=== PATIENT | male | born 1930 | race Caucasian/White ===

== ENCOUNTER 2018-10-02 20:19 | Emergency (ER) | payer MEDICARE, OTHER ==
--- NOTE | 2018-10-02 21:36 | ERPHSYRPT ---
- History of Present Illness Time Seen by Provider: 10/02/18 21:29 Source: patient Exam Limitations: no limitations Patient Subjective Stated Complaint: Pt c/o nasal/sinus/head congestion x 2-3 weeks, states he starts coughing when "he feels it all stuck in his throat and goes hoarse". Triage Nursing Assessment: [place]/warm/dry, resp easy, a&ox4, steady gait, [place], Son present who often speaks for pt when pt asked questions. no distress noted. Physician History: 87-year-old white male with history of arrhythmias, hernia, high blood pressure , anxiety, tinitis, Patient complains of nasal congestion and cough symptoms for 2-3 weeks. He denies any shortness of breath or chest pain., He states he was seen by his family doctor for the same and given an injection he states it continues. Past medical history includes arrhythmia, hernia, high blood pressure, anxiety, tinnitus. Past surgical history includes hernia repair, sinus surgery. Social history patient denies tobacco alcohol use. Timing/Duration: week(s) (2-3 weeks) Severity: moderate Modifying Factors: Improves With: nothing Associated Symptoms: cough, other (nasal congestion), No nausea, No vomiting, No abdominal pain, No shortness of breath, No heartburn, No diaphoresis, No chills, No chest pain, No fever, No headaches, No loss of appetite, No malaise, No rash, No syncope, No seizure, No weakness Allergies/Adverse Reactions: No Known Drug Allergies Allergy (Verified 10/02/18 20:29) Home Medications: Alprazolam 1 mg [Xanax 1 mg] 1 mg PO HS 12/04/13 [History] Aspirin 81 gm Chew [Baby Aspirin 81 mg Chew] 81 mg PO DAILY 12/04/13 [ History] Atorvastatin Calcium [Lipitor 20MG Tablet] 20 mg PO DAILY 12/04/13 [History] Metoprolol Succinate 50 mg [Toprol Xl 50 MG] 50 mg PO DAILY 12/04/13 [ History] Multivit with Iron,Minerals [Complete Senior] 1 tab PO DAILY 10/02/18 [History] Hx Tetanus, Diphtheria Vaccination/Date Given: Yes Hx Influenza Vaccination/Date Given: No Hx Pneumococcal Vaccination/Date Given: No Immunizations Up to Date: Yes - Review of Systems Constitutional: No Fever, No Chills Eyes: No Symptoms Ears, Nose, & Throat: Nose Congestion, Nose Discharge, Sinus Drainage, No Ear Pain, No Ear Discharge, No Hearing Changes, No Tinnitus, No Nose Pain, No Epistaxis, No Mouth Pain, No Mouth Swelling, No Loose Teeth, No Throat Swelling , No Hoarse, No Painful Swallowing, No Snoring, No Stridor Respiratory: Cough, No Cyanosis, No Dyspnea, No Dyspnea on Exertion (BREEN), No Stridor, No Wheezing Cardiac: No Symptoms, No Chest Pain, No Edema, No Syncope Abdominal/Gastrointestinal: No Abdominal Pain, No Nausea, No Vomiting, No Diarrhea Genitourinary Symptoms: No Dysuria Musculoskeletal: No Back Pain, No Neck Pain Skin: No Symptoms, No Rash Neurological: No Dizziness, No Focal Weakness, No Sensory Changes Psychological: No Symptoms Endocrine: No Symptoms All Other Systems: Reviewed and Negative - Past Medical History Pertinent Past Medical History: Yes Neurological History: No Pertinent History ENT History: No Pertinent History Cardiac History: Arrhythmia, Hypertension Respiratory History: No Pertinent History Endocrine Medical History: No Pertinent History Musculoskeletal History: No Pertinent History GI Medical History: Hernia History: No Pertinent History Psycho-Social History: Anxiety Male Reproductive Disorders: No Pertinent History Other Medical History: TINNITUS - Past Surgical History Past Surgical History: Yes Neuro Surgical History: No Pertinent History Cardiac: No Pertinent History Respiratory: No Pertinent History Gastrointestinal: Hernia Repair Genitourinary: No Pertinent History Musculoskeletal: No Pertinent History Male Surgical History: No Pertinent History - Social History Smoking Status: Never smoker Exposure to second hand smoke: No Drug Use: none Patient Lives Alone: No - Nursing Vital Signs Nursing Vital Signs: Initial Vital Signs Temperature 97.9 F 10/02/18 20:33 Pulse Rate 61 10/02/18 20:33 Respiratory Rate 16 10/02/18 20:33 Blood Pressure 170/93 10/02/18 20:33 O2 Sat by Pulse Oximetry 94 L 10/02/18 20:33 Pain Scale Pain Intensity 0 - Physical Exam General Appearance: no apparent distress (what here for), alert Eye Exam: PERRL/EOMI, eyes nml inspection, other (fundi are unremarkable) Ears, Nose, Throat Exam: TMs normal, pharynx normal, moist mucous membranes, other (tenderness with percussion maxillary region bilaterally), No TM abnormal (R), No TM abnormal (L) Respiratory Exam: normal breath sounds, lungs clear, No respiratory distress Cardiovascular Exam: regular rate/rhythm, normal heart sounds, normal peripheral pulses, capillary refill <2 sec Gastrointestinal/Abdomen Exam: soft, normal bowel sounds, No tenderness, No mass Back Exam: normal inspection, normal range of motion, No CVA tenderness, No vertebral tenderness Extremity Exam: normal inspection, normal range of motion, pelvis stable Neurologic Exam: alert, oriented x 3, cooperative, sterilizer operator II-XII nml as tested, normal mood/affect, nml cerebellar function, nml station & gait, sensation nml, No motor deficits Skin Exam: normal color, warm, dry, No rash Lymphatic Exam: No adenopathy SpO2 Interpretation: normal (94%) SpO2: 94 - Course Nursing assessment & vital signs reviewed: Yes Ordered Tests: Active Orders 24 hr Category Date Time Status EKG-ER Only STAT Care 10/02/18 21:32 Active CHEST 1 VIEW (PORTABLE) Stat Exams 10/02/18 21:33 Ordered - Progress Progress: improved Progress Note: 10/02/18 21:40 87-year-old white male with history of arrhythmia, hernia,, high blood pressure , anxiety, tinnitus. He arrives with complaint of nasal congestion and cough symptoms for 2-3 weeks he states he is seen by his family doctor for the same and has been given a shot for it. I do notice that the patient has some maxillary sinus tenderness with percussion. I had initially ordered a EKG and a chest x-ray however patient is refusing this. Will go ahead place patient on antibiotics to treat his sinusitis and bronchitis. Patient is to follow-up with his family doctor. 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 Plenty of fluids. Amoxicillin 500 mg orally 3 times a day for 10 days. Follow-up with your family doctor. Return for acute distress severe symptoms or for any problems. Prescriptions: Amoxicillin 500 mg PO TID #30 capsule
[2018-10-02] MEDS ORDERED: AMOXIL 500 MG PO ONE (21:43)
[2018-10-02] MEDS ORDERED: AMOXIL 500 MG ONE (22:14)
[2018-10-02 22:33] VITALS: BP 158/91; PULSE 62; O2SAT 95
== END 2018-10-02 22:39 | disposition home or self-care (01) ==
LOC: ED 20:19
DX: J32.0 Chronic maxillary sinusitis (principal); F41.9 Anxiety disorder, unspecified
CPT/HCPCS: 99283; A9270-GY

== ENCOUNTER 2019-06-14 11:22 | Emergency (ER) | payer MEDICARE, OTHER ==
[2019-06-14] MEDS ORDERED: Sodium Chloride 0.9% 1000 ML 1,000 ML IV STA (11:41)
[2019-06-14] MEDS ORDERED: Sodium Chloride 0.9% 1000 ML 1,000 ML ONE (11:45)
--- NOTE | 2019-06-14 11:46 | ERPHSYRPT ---
- History of Present Illness Time Seen by Provider: 06/14/19 12:00 Patient Subjective Stated Complaint: PT COMPLAINS OF HEADACHE X 2 DAYS, BUT NONE TODAY; BLOODY NOSE 2 DAYS AGO; TINGLING AND NUMBNESS IN BOTH LEGS; NOT SLEEPING FOR 2 WEEKS; CONGESTION FOR APPROX 1 WEEK. Triage Nursing Assessment: ALERT AND ORIENTED. BILATERAL STRONG PLASTIC SHAPER. LOWER LEG STRENGTH STRONG BILATERAL. LUNGS CLEAR TO AUSCULTATION. BILATERAL RADIAL AND PEDAL PULSE EQUAL Physician History: 88-year-old male brought into the emergency room with one-week history of loss of appetite, dizziness, weakness and loss of balance. Patient is also complaining of sinus drainage and sinus headache. Patient is also complaining of tinnitus. Timing/Duration: week(s) (one to two weeks) Deficits: decrease ability to stand, decrease ability to walk Baseline/Normal Cognition: alert oriented x 3 Baseline Gait: uses cane Associated Symptoms: fatigue, numbness/tingling in legs/feet, ringing in ears, trouble walking, headache, No chest pain Allergies/Adverse Reactions: No Known Drug Allergies Allergy (Verified 10/02/18 20:29) Home Medications: Atorvastatin Calcium [Lipitor 20MG Tablet] 20 mg PO DAILY 12/04/13 [History] Metoprolol Succinate 50 mg [Toprol Xl 50 MG] 50 mg PO DAILY 12/04/13 [ History] Hx Tetanus, Diphtheria Vaccination/Date Given: Yes Hx Influenza Vaccination/Date Given: No Hx Pneumococcal Vaccination/Date Given: No - Review of Systems Constitutional: Fatigue, Weakness, No Fever, No Chills Eyes: No Symptoms Ears, Nose, & Throat: No Symptoms Respiratory: No Cough, No Dyspnea Cardiac: No Chest Pain, No Edema, No Syncope Abdominal/Gastrointestinal: No Abdominal Pain, No Nausea, No Vomiting, No Diarrhea Genitourinary Symptoms: No Dysuria Musculoskeletal: No Back Pain, No Neck Pain Skin: No Rash Neurological: Dizziness, Gait Changes, Headache, Lethargy, No Focal Weakness, No Sensory Changes Psychological: No Symptoms Endocrine: No Symptoms All Other Systems: Reviewed and Negative - Past Medical History Pertinent Past Medical History: Yes Neurological History: No Pertinent History ENT History: No Pertinent History Cardiac History: Arrhythmia, High Cholesterol, Hypertension Respiratory History: No Pertinent History Endocrine Medical History: No Pertinent History Musculoskeletal History: No Pertinent History GI Medical History: Hernia History: No Pertinent History Psycho-Social History: Anxiety Male Reproductive Disorders: No Pertinent History Other Medical History: TINNITUS - Past Surgical History Past Surgical History: Yes Neuro Surgical History: No Pertinent History Cardiac: No Pertinent History Respiratory: No Pertinent History Gastrointestinal: Hernia Repair Genitourinary: No Pertinent History Musculoskeletal: No Pertinent History Male Surgical History: No Pertinent History - Social History Smoking Status: Never smoker Exposure to second hand smoke: No Drug Use: none Patient Lives Alone: No - Nursing Vital Signs Nursing Vital Signs: Initial Vital Signs Temperature 99 F 06/14/19 11:41 Pulse Rate 68 06/14/19 11:41 Respiratory Rate 18 06/14/19 11:41 Blood Pressure 149/94 06/14/19 11:41 O2 Sat by Pulse Oximetry 97 06/14/19 11:41 Pain Scale Pain Intensity 0 - Nicol Coma Scale Best Eye Response ([place]): (4) open spontaneously Best Verbal Response (Nicol): (5) oriented Best Motor Response (Nicol): (6) obeys commands Nicol Total: 15 - Physical Exam SpO2: 97 - Course Nursing assessment & vital signs reviewed: Yes - CT Exams Head CT Interpretation: Tele-radiologist Report (no acute findings) Ordered Tests: Active Orders 24 hr Category Date Time Status IV Insertion STAT Care 06/14/19 11:56 Active HEAD WITHOUT CONTRAST [CT] Stat Exams 06/14/19 11:42 Taken CBC W DIFF Stat Lab 06/14/19 11:41 Completed CMP Stat Lab 06/14/19 11:41 Completed MAGNESIUM Stat Lab 06/14/19 11:41 Completed Medication Summary Discontinued Medications Generic Name Dose Route Start Last Admin Trade Name Parishq PRN Reason Stop Dose Admin Sodium Chloride 1,000 mls @ 999 mls/hr 06/14/19 11:41 06/14/19 12:47 Sodium Chloride 0.9% 1000 Ml IV 06/14/19 12:41 Infused .Q1H1M STA Infusion Sodium Chloride Confirm 06/14/19 11:45 Sodium Chloride 0.9% 1000 Ml Administered 06/14/19 11:46 Dose 1,000 mls @ ud .ROUTE .STK-MED ONE Lab/Rad Data: Laboratory Result Diagrams 06/14/19 11:41 06/14/19 11:41 Laboratory Results 06/14/19 06/14/19 Range/Units 11:41 11:41 WBC 8.1 (4.0-10.5) K/mm3 RBC 4.15 (4.1-5.6) M/mm3 Hgb 13.0 (12.5-18.0) gm/dl Hct 39.9 L (42-50) % MCV 96.1 (78-100) fl MCH 31.3 (26-32) pg MCHC 32.6 (32-36) g/dl RDW 12.8 (11.5-14.0) % Plt Count 192 (150-450) K/mm3 MPV 10.6 H (6-9.5) fl Gran % 67.2 H (36.0-66.0) % Eos # (Auto) 0.03 (0-0.5) Absolute Lymphs (auto) 1.84 (1.0-4.6) Absolute Monos (auto) 0.76 (0.0-1.3) Lymphocytes % 22.8 L (24.0-44.0) % Monocytes % 9.4 (0.0-12.0) % Eosinophils % 0.4 (0.00-5.0) % Basophils % 0.2 (0.0-0.4) % Absolute Granulocytes 5.42 (1.4-6.9) Basophils # 0.02 (0-0.4) Sodium 143 (137-145) mmol/L Potassium 4.0 (3.5-5.1) mmol/L Chloride 108 H (98-107) mmol/L Carbon Dioxide 27 (22-30) mmol/L Anion Gap 11.1 (5-15) MEQ/L BUN 15 (9-20) mg/dL Creatinine 0.77 (0.66-1.25) mg/dL Estimated GFR > 60.0 ML/MIN Glucose 96 (74-106) mg/dL Calcium 9.3 (8.4-10.2) mg/dL Magnesium 2.1 (1.6-2.3) mg/dL Total Bilirubin 0.80 (0.2-1.3) mg/dL AST 23 (17-59) U/L ALT 14 (0-50) U/L Alkaline Phosphatase 66 (38-126) U/L Serum Total Protein 7.4 (6.3-8.2) g/dL Albumin 4.2 (3.5-5.0) g/dL - Progress Progress: improved Counseled pt/family regarding: lab results, diagnosis, need for follow-up, rad results - Departure Departure Disposition: Home Clinical Impression: Sinusitis chronic, frontal Tinnitus Qualifiers: Laterality: left Qualified Code(s): 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 Stop baby aspirin. Follow up with Dr Lopez on sunday Discharge/Care Plan ADEN HENDRIX was seen on 06/14/19 in the Emergency Room. The patient was counseled regarding Diagnosis,Lab results, Imaging studies, need for follow up and when to return to the Emergency Room. Prescriptions given: Discharge Note I have spoken with the patient and/or caregivers. I have explained the patient' s condition, diagnosis and treatment plan based on the information available to me at this time. I have answered the patient's and/or caregiver's questions and addressed any concerns. The patient and/or caregivers have as good understanding of the patient's diagnosis, condition and treatment plan as can be expected at this point. The vital signs have been stable. The patient's condition is stable and appropriate for discharge from the emergency department. The patient will pursue further outpatient evaluation with the primary care physician or other designated or consulting physician as outlined in the discharge instructions. The patient and/or caregivers are agreeable to this plan of care and follow-up instructions have been explained in detail. The patient and/or caregivers have received these instruction. The patient/and or caregivers are aware that any significant change in condition or worsening of symptoms should prompt an immediate return to this or the closest emergency department or call 911.
[2019-06-14 12:04] LABS: Absolute Neutrophil Ct (ANC) 5.42 (1.4-6.9); BASOPHIL % 0.2 % (0.0-0.4); Basophil (Absolute #) 0.02 (0-0.4); Eosinophil % 0.4 % (0.00-5.0); Eosinophil (Absolute #) 0.03 (0-0.5); Hematocrit 39.9 % (42-50); Lymphocyte (Absolute #) 1.84 (1.0-4.6); Lymphocytes % 22.8 % (24.0-44.0); Mean Cell Volume 96.1 fl (78-100); Mean Corpuscular Hemoglobin 31.3 pg (26-32); Mean Corpuscular Hgb Concent. 32.6 g/dl (32-36); Mean Platelet Volume 10.6 fl (6-9.5); Monocyte (Absolute #) 0.76 (0.0-1.3); Monocytes % 9.4 % (0.0-12.0); Neutrophil % 67.2 % (36.0-66.0); Platelet Count 192 K/mm3 (150-450); Red Blood Count 4.15 M/mm3 (4.1-5.6); Red Cell Distribution Width 12.8 % (11.5-14.0); White Blood Count 8.1 K/mm3 (4.0-10.5)
[2019-06-14 12:11] LABS: ALBUMIN 4.2 g/dL (3.5-5.0); ALKALINE PHOSPHATASE 66 U/L (38-126); ANION GAP 11.1 MEQ/L (5-15); BLOOD UREA NITROGEN 15 mg/dL (9-20); CHLORIDE 108 mmol/L (98-107); Calcium 9.3 mg/dL (8.4-10.2); Carbon Dioxide 27 mmol/L (22-30); Creatinine 1 0.77 mg/dL (0.66-1.25); Glucose 96 mg/dL (74-106); MAGNESIUM 2.1 mg/dL (1.6-2.3); SGOT/AST 23 U/L (17-59); SGPT/ALT 14 U/L (0-50); SODIUM 143 mmol/L (137-145); Total Protein 7.4 g/dL (6.3-8.2)
[2019-06-14 13:00] VITALS: PULSE 60
[2019-06-14 13:55] VITALS: BP 149/83; O2SAT 96
--- NOTE | 2019-06-14 20:25 | XRAY ---
Indication: Dizziness. Tinnitus. Multiple contiguous axial images obtained through the head without contrast. Comparison: December 04, 2013. Progressive age-appropriate global atrophy and minimal periventricular degenerative micro-ischemia. No acute intracranial hemorrhage, abnormal extra-axial fluid collection, or mass effect. Fourth ventricle is midline without hydrocephalus. Bony calvarium intact. Visualized paranasal sinuses and mastoid air cells are clear. Impression: Nonacute senile brain. Comment: Preliminary interpretation was made by [facility]. No critical discrepancy. CTDI 53.31
== END 2019-06-14 14:02 | disposition home or self-care (01) ==
LOC: ED 11:22
DX: H93.12 Tinnitus, left ear (principal); J32.1 Chronic frontal sinusitis; R51 Headache; R53.83 Other fatigue; R20.0 Anesthesia of skin; R20.2 Paresthesia of skin
CPT/HCPCS: 36000; 36415; 70450; 80053; 83735; 85025; 96360; 96374; 99284